=== PATIENT | female | born 1935 | race Caucasian/White ===

== ENCOUNTER 2017-01-25 19:46 | Inpatient (IN) | payer OTHER, MEDICAID ==
[~2017-01-25] VITALS: Ht 152.4 cm; Wt 58.1 kg
[~2017-01-25 19:46] MED LIST: CARB200C4 PO; CARV3.1246 PO; FURO-149 PO; GLIP-195 PO; GLUXR500 PO; ISOS60TA4 PO; KETO5DRO39 LEFT EYE; LIP20 PO; OFLO5DRO6 LEFT EYE; PHEN100C4 PO; POTA-118 PO; PREDEYE1% LEFT EYE; VALS160T2 PO
[2017-01-25 20:00] VITALS: BP_SYST 161
[2017-01-25] MEDS ORDERED: PHEN100C4 PO ×2 (20:30→20:31)
[2017-01-25] MEDS ORDERED: TIMO5DRO4 OP (20:33)
[2017-01-25] MEDS ORDERED: ERYEYE OP (20:34)
[2017-01-25 21:08] LABS: BASOPHILS % (AUTO) 0.3 % (0.0-2.0); EOSINOPHILS % (AUTO) 0.8 % (0.0-4.0); HEMATOCRIT 29.4 % (36-48); HEMOGLOBIN 9.7 g/dL (12.0-16.0); LYMPHOCYTES # (AUTO) 1.1 K/uL (1.0-5.5); MEAN CORPUSCULAR HEMOGLOBIN 28 pg (27-31); MEAN CORPUSCULAR HGB CONC 33 % (32-36); MEAN CORPUSCULAR VOLUME 84 fL (79.0-98.0); MONOCYTES # (AUTO) 0.3 K/uL (0.0-1.0); NEUTROPHILS % (AUTO) 72.9 % (40.0-70.0); PLATELET COUNT (AUTO) 348 K/uL (130-430); RED BLOOD CELL COUNT(AUTO) 3.49 MIL/uL (4.2-6.2); RED CELL DISTRIBUTION WIDTH 16.1 % (9.0-15.0); WHITE BLOOD COUNT (AUTO) 5.4 K/uL (4.8-10.8)
[2017-01-25 21:17] LABS: ANION GAP 7 (5-15); CALCIUM 8.5 mg/dL (8.4-11.0); CHLORIDE 101 mmol/L (98-107); CREATININE 1.16 mg/dL (0.55-1.30); GLUCOSE 184 mg/dL (70-99); POTASSIUM 3.9 mmol/L (3.5-5.1); SODIUM SERUM 138 mmol/L (136-145); UREA NITROGEN, BLOOD 27 mg/dL (8-21)
[2017-01-25 21:33] LABS: ALANINE AMINOTRANSFERASE 32 U/L (12-78); ALBUMIN 3.4 g/dL (3.4-4.8); ASPARTATE AMINOTRANSFERASE 33 U/L (10-37); LIPASE 168 U/L (73-393); TOTAL BILIRUBIN 0.3 mg/dL (0.0-1.0); TOTAL PROTEIN, SERUM 7.2 g/dL (6.4-8.3)
[2017-01-25 21:48] LABS: BILIRUBIN,URINE NEGATIVE (NEGATIVE); BLOOD, URINE NEGATIVE (NEGATIVE); CLARITY/URINE SL HAZY (CLEAR); COLOR,URINE YELLOW (YELLOW); GLUCOSE,URINE NEGATIVE (NEGATIVE); KETONES,URINE NEGATIVE (NEGATIVE); LEUKOCYTE ESTERASE ,URINE TRACE (NEGATIVE); NITRITE, URINE NEGATIVE (NEGATIVE); PROTEIN URINE 1+ (NEGATIVE); UROBILINOGEN,URINE 0.2 (0.2-1.0)
[2017-01-25 22:23] LABS: BACTERIA,URINE FEW /HPF (None Seen); MUCUS,URINE 1+ /LPF (None Seen); RBC,URINE 0-3 /HPF (0-3)
[2017-01-25 22:25] LABS: HYALINE CASTS, URINE 0-10 /LPF (None Seen)
[2017-01-25] MEDS ORDERED: cefTRIAXone 1 GM VIAL IM ONE (22:30)
[2017-01-25] MEDS ORDERED: INSULIN REGULAR, HUMAN 100 UNITS/ML, 10 ML VIAL (novoLIN R) SUBCUT PRN (22:45)
[2017-01-25] MEDS ORDERED: cefTRIAXone 1 GM VIAL ONE (23:00)
[2017-01-25] MEDS ORDERED: cefTRIAXone 1 GM in D5W 50 ML IV ONE (23:00)
[2017-01-26 00:10] VITALS: BP_SYST 154
[2017-01-26 04:00] VITALS: BP_SYST 135
[2017-01-26 08:00] VITALS: BP_SYST 139
[2017-01-26] MEDS: glipiZIDE XL 5 MG TAB ( GLUCOTROL XL) PO SCH (08:54)
[2017-01-26] MEDS: ATORVASTATIN 20 MG TABLET PO SCH (08:54)
[2017-01-26] MEDS: VALSARTAN 160 MG TABLET (DIOVAN) PO SCH (08:56)
[2017-01-26] MEDS: FUROSEMIDE 40 MG TABLET PO SCH (08:56)
[2017-01-26] MEDS: POTASSIUM CHLORIDE 10 MEQ TAB.PRT.SR PO SCH ×2 (08:56→21:26)
[2017-01-26] MEDS: ISOSORBIDE MONONITRATE 30 MG TAB.ER.24H PO SCH (08:57)
[2017-01-26] MEDS: CARVEDILOL 3.125 MG TABLET (COREG) PO SCH ×2 (08:57→21:26)
[2017-01-26] MEDS ORDERED: PHENYTOIN 100 MG CAPSULE PO SCH ×3 (09:00→21:00)
[2017-01-26 10:15] LABS: PHENYTOIN (DILANTIN) 26.2 ug/mL (10.0-20.0)
[2017-01-26 12:11] VITALS: BP_SYST 121
[2017-01-26 16:00] VITALS: BP_SYST 101
[2017-01-26 20:00] VITALS: BP_SYST 128
[2017-01-26] MEDS: cefTRIAXone 1 GM in D5W 50 ML IV SCH (21:38)
[2017-01-27] VITALS: BP_SYST 133
[2017-01-27] MEDS: glipiZIDE XL 5 MG TAB ( GLUCOTROL XL) PO SCH (09:00)
[2017-01-27] MEDS: POTASSIUM CHLORIDE 10 MEQ TAB.PRT.SR PO SCH ×2 (10:28→20:55)
[2017-01-27] MEDS: CARVEDILOL 3.125 MG TABLET (COREG) PO SCH ×2 (10:28→21:00)
[2017-01-27] MEDS: ATORVASTATIN 20 MG TABLET PO SCH (10:29)
[2017-01-27] MEDS: VALSARTAN 160 MG TABLET (DIOVAN) PO SCH (10:29)
[2017-01-27] MEDS: FUROSEMIDE 40 MG TABLET PO SCH (10:29)
[2017-01-27] MEDS: ISOSORBIDE MONONITRATE 30 MG TAB.ER.24H PO SCH (10:29)
[2017-01-27 12:10] VITALS: BP_SYST 138
[2017-01-27 16:36] VITALS: BP_SYST 125
[2017-01-27 20:00] VITALS: BP_SYST 102
[2017-01-27] MEDS: cefTRIAXone 1 GM in D5W 50 ML IV SCH (20:55)
[2017-01-27 23:32] VITALS: BP_SYST 113
[2017-01-28 04:39] VITALS: BP_SYST 148
[2017-01-28 06:58] LABS: BASOPHILS % (AUTO) 0.3 % (0.0-2.0); EOSINOPHILS # (AUTO) 0.2 K/uL (0.0-0.4); EOSINOPHILS % (AUTO) 3.8 % (0.0-4.0); HEMATOCRIT 27.5 % (36-48); HEMOGLOBIN 8.6 g/dL (12.0-16.0); LYMPHOCYTES # (AUTO) 2.1 K/uL (1.0-5.5); LYMPHOCYTES % (AUTO) 38.5 % (20.5-51.5); MEAN CORPUSCULAR HEMOGLOBIN 27 pg (27-31); MEAN CORPUSCULAR HGB CONC 31 % (32-36); MEAN CORPUSCULAR VOLUME 85 fL (79.0-98.0); MONOCYTES # (AUTO) 0.5 K/uL (0.0-1.0); MONOCYTES % (AUTO) 8.8 % (1.7-9.3); NEUTROPHILS # (AUTO) 2.7 K/uL (1.8-7.7); NEUTROPHILS % (AUTO) 48.6 % (40.0-70.0); PLATELET COUNT (AUTO) 344 K/uL (130-430); RED BLOOD CELL COUNT(AUTO) 3.24 MIL/uL (4.2-6.2); RED CELL DISTRIBUTION WIDTH 15.6 % (9.0-15.0); WHITE BLOOD COUNT (AUTO) 5.5 K/uL (4.8-10.8)
[2017-01-28 07:18] LABS: ALANINE AMINOTRANSFERASE 26 U/L (12-78); ALBUMIN 2.9 g/dL (3.4-4.8); ANION GAP 5 (5-15); ASPARTATE AMINOTRANSFERASE 32 U/L (10-37); CALCIUM 8.2 mg/dL (8.4-11.0); CHLORIDE 103 mmol/L (98-107); CREATININE 1.09 mg/dL (0.55-1.30); GLUCOSE 102 mg/dL (70-99); PHENYTOIN (DILANTIN) 17.5 ug/mL (10.0-20.0); POTASSIUM 4.2 mmol/L (3.5-5.1); SODIUM SERUM 137 mmol/L (136-145); TOTAL BILIRUBIN 0.2 mg/dL (0.0-1.0); TOTAL PROTEIN, SERUM 6.2 g/dL (6.4-8.3); UREA NITROGEN, BLOOD 29 mg/dL (8-21)
[2017-01-28 08:00] VITALS: BP_SYST 151
[2017-01-28] MEDS: ISOSORBIDE MONONITRATE 30 MG TAB.ER.24H PO SCH (08:24)
[2017-01-28] MEDS: POTASSIUM CHLORIDE 10 MEQ TAB.PRT.SR PO SCH (08:24)
[2017-01-28] MEDS: ATORVASTATIN 20 MG TABLET PO SCH (08:24)
[2017-01-28] MEDS: CARVEDILOL 3.125 MG TABLET (COREG) PO SCH (08:27)
[2017-01-28] MEDS: FUROSEMIDE 40 MG TABLET PO SCH (08:28)
[2017-01-28] MEDS: VALSARTAN 160 MG TABLET (DIOVAN) PO SCH (08:30)
[2017-01-28] MEDS: glipiZIDE XL 5 MG TAB ( GLUCOTROL XL) PO SCH (08:52)
[2017-01-28] MEDS ORDERED: PHENYTOIN 100 MG CAPSULE PO SCH (09:00)
[2017-01-28 12:44] VITALS: BP_SYST 129
[2017-01-28 14:13] VITALS: BP_SYST 144
== END 2017-01-28 14:30 | disposition home health service (06) | DRG 74 ==
LOC: SED 19:46 → STU 22:38 → SMU 01-26 14:01
PROVIDERS: ADMIT Internal Medicine; ATTEND Internal Medicine
DX: E11.40 Type 2 diabetes mellitus with diabetic neuropathy, unspecified (principal); G40.909 Epilepsy, unspecified, not intractable, without status epilepticus; E78.5 Hyperlipidemia, unspecified; I10 Essential (primary) hypertension; H40.9 Unspecified glaucoma; M19.90 Unspecified osteoarthritis, unspecified site; H54.8 Legal blindness, as defined in USA; R62.7 Adult failure to thrive; R53.81 Other malaise; E11.51 Type 2 diabetes mellitus with diabetic peripheral angiopathy without gangrene; W18.39XA Other fall on same level, initial encounter; Y93.89 Activity, other specified; Y99.8 Other external cause status; Z79.899 Other long term (current) drug therapy; Z83.3 Family history of diabetes mellitus; Z88.0 Allergy status to penicillin; Z82.49 Family history of ischemic heart disease and other diseases of the circulatory system; Z86.011 Personal history of benign neoplasm of the brain; G93.89 Other specified disorders of brain; T42.0X5A Adverse effect of hydantoin derivatives, initial encounter; Y92.092 Bedroom in other non-institutional residence as the place of occurrence of the external cause
CPT/HCPCS: 36415; 70450-TC; 71010; 80053; 80156-TC; 80185-TC; 81000-TC; 82962; 83605; 83690-TC; 83735-TC; 84484; 85025; 87040-TC; 87086; 93005; 96365; 97116-GP; 99285; J0696; J1815; J7040; J7060